=== PATIENT | female | born 1980 | race Caucasian/White ===

== ENCOUNTER 2016-07-16 06:32 | Emergency (ER) | payer BC ==
[~2016-07-16] VITALS: Ht 165.1 cm; Wt 83.4 kg
[2016-07-16 06:49] VITALS: BP 133/82
[2016-07-16] MEDS ORDERED: fentaNYL 100 MCG/2 ML VIAL IM ONE ×2 (07:20→08:10)
[2016-07-16] MEDS ORDERED: PROMETHAZINE 25 MG/ML (PHENERGAN) 1 ML VIAL IM ONE (07:20)
[2016-07-16] MEDS ORDERED: ONDANSETRON 4 MG (ZOFRAN) ORAL DISSOLVE TAB PO ONE (08:10)
== END 2016-07-16 08:37 | disposition home or self-care (01) ==
LOC: EDUNIT# 06:32 → ED 06:36
DX: G43.909 Migraine, unspecified, not intractable, without status migrainosus (principal)
CPT/HCPCS: 70450; 96372; 99282; J2550; J3010; 99283